=== PATIENT | female | born 1990 | race American Indian/Alaskan Native ===

== ENCOUNTER 2017-04-29 05:38 | Emergency (ER) | payer BC, OTHER ==
[2017-04-29] MEDS ORDERED: DELTASONE PO ONE (07:54)
[2017-04-29] MEDS ORDERED: TYLENOL/CODEINE PO ONE (07:54)
--- NOTE | 2017-04-29 08:10 | Emergency Department Report ---
Minor Respiratory - HPI Chief Complaint: Upper Respiratory Infection Stated Complaint: FEVER Time Seen by Provider: 04/29/17 07:19 Duration: 5 Days Pain Location: Throat, Nose Severity: moderate Minor Respiratory: Yes Sore Throat, Yes Able to Tolerate Fluids, Yes Cough, No Rhinorrhea, No Ear Pain, No Sick Contacts, No Hemoptysis, No Chest Pain, No Shortness of Breath, No Fever Other History: Patient is a 26-year-old female who presents to ED 36 weeks gestation and currently receives care from [facility]. Patient states for the past 5 days she has had intermittent coughing with yellowish greenish productive mucus. Patient also complains of runny nose soreness of the throat. Patient states she is able to tolerate fluids, food and pn vitamins regularly. Patient reports good movement and denies vaginal bleeding, leaking fluids. ED Review of Systems ROS: Stated complaint: FEVER Other details as noted in HPI Constitutional: denies: chills, fever Eyes: denies: eye pain, eye discharge, vision change ENT: congestion. denies: ear pain, throat pain, dental pain Respiratory: cough. denies: shortness of breath, wheezing Cardiovascular: denies: chest pain, palpitations Endocrine: no symptoms reported Gastrointestinal: denies: abdominal pain, nausea, diarrhea Genitourinary: denies: urgency, dysuria, discharge Musculoskeletal: denies: back pain, joint swelling, arthralgia Skin: denies: rash, lesions Neurological: denies: headache, weakness, paresthesias Psychiatric: denies: anxiety, depression Hematological/Lymphatic: denies: easy bleeding, easy bruising ED Past Medical Hx - Past Medical History Previous Medical History?: No - Surgical History Past Surgical History?: No Additional Surgical History: right ecoptic..tube removed - Social History Smoking Status: Never Smoker Substance Use Type: None - Medications Home Medications: Home Medications Medication Instructions Recorded Confirmed Last Taken Type Naproxen Sodium (Nf) [Anaprox DS] 550 mg PO BID PRN #14 tablet 06/29/13 Unknown Rx traMADol [Ultram] 50 mg PO Q4HR PRN #20 tablet 06/29/13 Unknown Rx Ascorbic Acid [Vitamin C] 500 mg PO BID #30 tablet 04/29/17 Unknown Rx D-Methorphan/PE/Acetaminophen 1 each PO Q6H #30 tablet 04/29/17 Unknown Rx [Tylenol Cold Multi-Symp Caplet] guaiFENesin [Robitussin] 200 mg PO Q6HR #20 tablet 04/29/17 Unknown Rx Minor Respiratory Exam - Exam General: Vital signs noted. No distress. Alert and acting appropriately. HEENT: Yes Moist Mucous Membranes, No Pharyngeal Erythema, No Pharyngeal Exudates, No Rhinorrhea, No Conjuctival Injection, No Frontal Tenderness, No Maxillary Tenderness Ear: Neither TM Bulge, Neither TM Erythema, Neither EAC Pain, Neither EAC Discharge Neck: Yes Supple, No Adenopathy Lungs: Yes Good Air Exchange, Yes Cough, No Wheezes, No Ronchi, No Stridor, No Labored Respirations, No Retractions, No Use of Accessory Muscles, No Other Abnormal Lung Sounds Heart: Yes Regular, No Murmur Abdomen: Yes Normal Bowel Sounds, No Tenderness, No Peritoneal Signs Skin: No Rash, No Edema Neurologic: Alert and oriented, no deficits. Musculoskeletal: Unremarkable. ED Course Vital Signs 04/29/17 05:54 Temperature 98.6 F Pulse Rate 111 H Respiratory 17 Rate Blood Pressure 116/71 O2 Sat by Pulse 98 Oximetry ED Medical Decision Making - Medical Decision Making 26-year-old female presents with upper respiratory infection. ED course: Patient received Tylenol with Codeine to help with cough and prednisone in the ED. I discussed with patient with viral syndromes last 7-14 days and will resolve on its own. I discussed with patient symptomatic relief, proper rest, vitamin C to boost immunity. I discussed the patient to avoid sick contacts, drink plenty of fluids. d I discussed the patient to follow up with [facility] as scheduled. I discussed with the patient is symptoms worsens or new symptoms arise to return to ED immediately. Vital signs are normal patient is in no acute or respiratory distress. Critical care attestation.: If time is entered above; I have spent that time in minutes in the direct care of this critically ill patient, excluding procedure time. ED Disposition Clinical Impression: Viral syndrome URI (upper respiratory infection) Qualifiers: URI type: unspecified URI Qualified Code(s): J06.9 - Acute upper respiratory infection, unspecified Disposition: DC- TO HOME OR SELFCARE Is pt being admited?: No Does the pt Need Aspirin: No Condition: Stable Instructions: Viral Syndrome (ED), Upper Respiratory Infection (ED) Additional Instructions: Make sure to follow up with the obgyn as discussed. Take all your medications as you've been prescribed. If you have any worsening symptoms or develop new symptoms please return to ED immediately. Prescriptions: Ascorbic Acid [Vitamin C] 500 mg PO BID #30 tablet D-Methorphan/PE/Acetaminophen [Tylenol Cold Multi-Symp Caplet] 1 each PO Q6H # 30 tablet guaiFENesin [Robitussin] 200 mg PO Q6HR #20 tablet Referrals: GINA EUCDEA MD [Primary Care Provider] - 3-5 Days Forms: Accompanied Note, Work/School Release Form(ED) Time of Disposition: 08:26
[2017-04-29 09:01] VITALS: BP 120/70
== END 2017-04-29 09:00 | disposition home or self-care (01) ==
LOC: ED 05:38
DX: O99.513 Diseases of the respiratory system complicating pregnancy, third trimester (principal); Z3A.36 36 weeks gestation of pregnancy; B34.9 Viral infection, unspecified
CPT/HCPCS: 99282; J7512

== ENCOUNTER 2017-06-02 01:09 | Outpatient (CLI) | payer BC, OTHER ==
[2017-06-02] MEDS ORDERED: LACTATED RINGERS 500 ML IV ONE (01:14)
[2017-06-02 01:31] VITALS: BP 112/59
[2017-06-02 03:18] LABS: Color,Urine Yellow (Yellow); Mucus,Urine 3+ /HPF
[2017-06-02 03:19] LABS: Bilirubin,Urine Negative (Negative)
[2017-06-02 03:20] LABS: Blood,Urine Negative (Negative); Nitrite,Urine Negative (Negative); Urobilinogen,Urine < 0.2 mg/dL (<2.0)
[2017-06-02 03:21] LABS: Bacteria,Urine 1+ /HPF (Negative)
== END 2017-06-02 03:35 | disposition home or self-care (01) ==
LOC: TRG 01:09
PROVIDERS: ATTEND Obstetrics & Gynecology
DX: O47.03 False labor before 37 completed weeks of gestation, third trimester (principal); Z3A.36 36 weeks gestation of pregnancy
CPT/HCPCS: 59025; 81001; 96360; J7120

== ENCOUNTER 2018-09-25 08:49 | Inpatient (IN) | payer OTHER ==
[2018-09-25] MEDS ORDERED: BRETHINE IVP PRN (10:05)
[2018-09-25] MEDS ORDERED: STADOL IV PRN (10:05)
[2018-09-25] MEDS ORDERED: ZOFRAN IV PRN ×2 (10:05→18:23)
[2018-09-25] MEDS ORDERED: XYLOCAINE 2% INFILTRATI ONE (10:05)
[2018-09-25] MEDS ORDERED: BRETHINE SUB-Q PRN (10:05)
[2018-09-25] MEDS ORDERED: PHENERGAN PO PRN ×2 (10:05→18:23)
[2018-09-25] MEDS ORDERED: MINERAL OIL PO PRN (10:05)
[2018-09-25] MEDS ORDERED: SUBLIMAZE IV PRN (10:05)
[2018-09-25] MEDS: LACTATED RINGERS 1,000 ML IV SCH ×2 (10:44→12:23)
[2018-09-25] MEDS ORDERED: PITOCin/NS 30 UNIT/500ML 30 UNITS/500 ML BAG IV SCH ×2 (11:00)
[2018-09-25] MEDS ORDERED: PITOCin/NS 20 UNIT/1000ML DRIP 20 UNITS/1,000 ML BAG IV SCH ×2 (11:00→19:00)
[2018-09-25 11:10] LABS: Basophils % (Auto) 0.2 % (0.0-1.8); Eosinophils % (Auto) 0.1 % (0.0-4.3); Lymphocytes # (Auto) 1.6 K/mm3 (1.2-5.4); Lymphocytes % (Auto) 15.9 % (13.4-35.0); Mean Corpuscular HGB Conc 30 % (30-34); Mean Corpuscular Volume 74 fl (79-97); Monocytes # (Auto) 0.5 K/mm3 (0.0-0.8); Monocytes % (Auto) 5.4 % (0.0-7.3); Platelet Count 249 K/mm3 (140-440); Red Blood Count 4.39 M/mm3 (3.65-5.03); Red Cell Distribution Width 18.1 % (13.2-15.2)
[2018-09-25 11:15] LABS: Hematocrit 32.5 % (30.3-42.9); Hemoglobin 9.8 gm/dl (10.1-14.3)
[2018-09-25] MEDS ORDERED: fentaNYL-BUPIV 2 MCG/ML-0.125% 200 MCG/100 ML BAG EPIDURAL ONE (11:43)
[2018-09-25] MEDS ORDERED: MARCAINE 0.25% INFILTRATI ONE (12:02)
--- NOTE | 2018-09-25 12:12 | History and Physical Report ---
History of Present Illness Date of examination: 09/25/18 Date of admission: 09/25/18 10:36 Chief complaint: Contractions History of present illness: Pt is a 27yo BF EDC 09/28/18; EGA 39 4/7 weeks presents to L&D complaining of RUC's q 3-4 mins. She received late care at [facility] since 24 weeks and co-managed by [facility] for Obesity and previous C Section. She desires a TOLAC. records are available and GBS is Negative. 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[employer]/uterine surgery (Right salpinectomy), section Family/Genetic History: diabetes, hypertension Social history: no significant social history, single - Obstetrical History Expected Date of Delivery: 09/28/18 Actual Gestation: 39 Week(s) 4 Day(s) : 4 Medications and Allergies Allergies Allergy/AdvReac Type Severity Reaction Status Date / Time No Known Allergies Allergy Verified 06/02/17 01:18 Home Medications Medication Instructions Recorded Confirmed Last Taken Type Ferrous Sulfate [Iron] 325 mg PO TID 06/25/17 06/25/17 1 Day Ago History ~06/24/17 Pnv,Calcium 72/Iron/Folic Acid 1 each PO DAILY 06/25/17 06/25/17 1 Day Ago History [Pnv Plus Multivit Tab] ~06/24/17 Ferrous Sulfate [Feosol 325 MG tab] 325 mg PO BID #60 tablet 06/27/17 Unknown Rx HYDROcodone/APAP 5-325 [[place] 1 each PO Q6HR PRN #30 tablet 06/27/17 Unknown Rx 5-325 mg TAB] Ibuprofen [Motrin 800 MG tab] 800 mg PO Q8HR PRN #30 tablet 06/27/17 Unknown Rx Vit-Fe Fumar-FA [ 1 each PO QDAY #30 tablet 06/27/17 Unknown Rx Vitamin] Active Meds: Active Medications Butorphanol Tartrate (Stadol) 2 mg IV Q2H PRN PRN Reason: Pain , Severe (7-10) Last Admin: 09/25/18 11:19 Dose: 2 mg Documented by: Ephedrine Sulfate (Ephedrine Sulfate) 10 mg IV Q2M PRN PRN Reason: Hypotension Fentanyl (Sublimaze) 100 mcg IV Q2H PRN PRN Reason: Labor Pain Oxytocin/Sodium Chloride (Pitocin/Ns 20 Unit/1000ml Drip) 20 units in 1,000 mls @ 125 mls/hr IV DIRECT NAKIA Oxytocin/Sodium Chloride (Pitocin/Ns 30 Unit/500ml) 30 units in 500 mls @ 1 mls/hr IV TITR NAKIA; Protocol Oxytocin/Sodium Chloride (Pitocin/Ns 30 Unit/500ml) 30 units in 500 mls @ 4 mls/hr IV TITR NAKIA; Protocol Lactated Ringer's (Lactated Ringers) 1,000 mls @ 125 mls/hr IV DIRECT NAKIA Last Admin: 09/25/18 10:44 Dose: 125 mls/hr Documented by: Mineral Oil (Mineral Oil) 30 ml PO QHS PRN PRN Reason: Constipation Ondansetron HCl (Zofran) 4 mg IV Q8H PRN PRN Reason: Nausea And Vomiting Promethazine HCl (Phenergan) 25 mg PO Q6H PRN PRN Reason: Nausea And Vomiting Terbutaline Sulfate (Brethine) 0.25 mg SUB-Q ONCE PRN PRN Reason: Hyperstimulation/Hypertonicity Terbutaline Sulfate (Brethine) 0.25 mg IVP ONCE PRN PRN Reason: Hyperstimulation/Hypertonicity Review of Systems All systems: negative - Vital Signs Vital signs: Vital Signs Pulse BP 82 149/83 09/25/18 09:12 09/25/18 09:12 Temp Pulse Resp BP Pulse Ox 98.1 F 87 16 112/82 09/25/18 10:53 09/25/18 10:54 09/25/18 09:47 09/25/18 10:54 - Physical Exam Breasts: Positive: deferred Cardiovascular: Regular rate Lungs: Positive: Clear to auscultation Abdomen: Positive: normal appearance Genitourinary (Female): Positive: normal external genitalia Vagina: Positive: normal moisture Uterus: Positive: enlarged Extremities: Positive: normal - Obstetrical FHR: category 1 Uterine Contraction Monitor Mode: External Cervical Dilatation: 4 (per nurse) Cervical Effacement Percentage: 90 (per nurse) station: -2 Uterine Contraction Pattern: Regular Uterine Tone Measurement Phase: Contraction Uterine Contraction Intensity: Moderate Results Result Diagrams: 09/25/18 10:30 Abnormal lab results 09/25/18 Range/Units 10:30 Hgb 9.8 L (10.1-14.3) gm/dl MCV 74 L (79-97) fl MCH 22 L (28-32) pg RDW 18.1 H (13.2-15.2) % Seg Neutrophils % 78.4 H (40.0-70.0) % Seg Neutrophils # 7.9 H (1.8-7.7) K/mm3 All other labs normal. Assessment and Plan - Patient Problems (1) 39 weeks gestation of Onset Date: 09/25/18 Current Visit: Yes Status: Acute Plan to address problem: A: IUP @ 39 4/7 weeks in labor Previous C Section - Desires TOLAC P: Admit to L&D for expectant vaginal delivery (). (2) Previous section Onset Date: 09/25/18 Current Visit: Yes Status: Acute
--- NOTE | 2018-09-25 15:11 | Anesthesia Consultation ---
Anesthesia Consult and Med Hx Date of service: 09/25/18 - Airway Anesthetic Teeth Evaluation: Good ROM Head & Neck: Adequate Mental/Hyoid Distance: Adequate Mallampati Class: Class II Intubation Access Assessment: Good - Pulmonary Exam CTA: Yes - Cardiac Exam Cardiac Exam: RRR - Pre-Operative Health Status ASA Pre-Surgery Classification: ASA2 Proposed Anesthetic Plan: Epidural - Pre-Anesthesia Comment Pre-Anesthesia Comments: , - Pulmonary Hx Asthma: No COPD: No Hx Pneumonia: No - Cardiovascular System Hx Hypertension: No - Central Nervous System Hx Seizures: No Hx Psychiatric Problems: No - Endocrine Hx Renal Disease: No Hx End Stage Renal Disease: No Hx Hypothyroidism: No Hx Hyperthyroidism: No - Hematic Hx Anemia: Yes Hx Sickle Cell Disease: No - Other Systems Hx Alcohol Use: No - Additional Comments Anesthesia Medical History Comments: obesity
[2018-09-25] MEDS ORDERED: NARCAN 2 MG/2 ML IV PRN (15:12)
[2018-09-25] MEDS ORDERED: fentaNYL-BUPIV 2 MCG/ML-0.125% 200 MCG/100 ML BAG EPIDURAL SCH (16:00)
--- NOTE | 2018-09-25 18:17 | Procedure Note ---
OB Delivery Note - Delivery Date of Delivery: 09/25/18 Surgeon: ARASELI CUNNINGHAM Estimated blood loss: 100cc - Vaginal Delivery presentation: vertex Delivery position: OA Intrapartum events: PROM->1hr before delivery Delivery induction: none Delivery augmentation: rupture of membranes, pitocin Delivery monitor: external FHT, external uterine Route of delivery: Delivery placenta: spontaneous Delivery cord: 3 umbilical vessels Episiotomy: none Delivery laceration: none Anesthesia: epidural Delivery comments: Infant delivered OA and placed on Mom's chest for [id number] bonding and delayed cord clamping, cut by Dad - Infant A at 1 minute: 8 at 5 minutes: 9 Gender: Male (3144gms)
[2018-09-25] MEDS ORDERED: PHENERGAN PR PRN (18:23)
[2018-09-25] MEDS ORDERED: DULCOLAX PR PRN (18:23)
[2018-09-25] MEDS ORDERED: LANSINOH TP PRN (18:23)
[2018-09-25] MEDS ORDERED: BENADRYL PO PRN (18:23)
[2018-09-25] MEDS ORDERED: MILK OF MAGNESIA PO PRN (18:23)
[2018-09-25] MEDS ORDERED: TYLENOL PO PRN (18:23)
[2018-09-25] MEDS ORDERED: TUCKS PAD TP PRN (18:23)
[2018-09-25] MEDS ORDERED: SODIUM CHLORIDE FLUSH SYRINGE 10 ML IV NR (19:00)
[2018-09-25] MEDS: COLACE PO SCH (23:07)
[2018-09-25] MEDS: FEOSOL PO SCH (23:07)
[2018-09-25] MEDS: IBUPROFEN PO SCH (23:07)
[2018-09-26] MEDS: IBUPROFEN PO SCH ×4 (05:20→22:45)
[2018-09-26] MEDS ORDERED: BOOSTRIX IM ONE (06:00)
[2018-09-26] MEDS ORDERED: M-M-R II VACCINE SUB-Q ONE (06:00)
[2018-09-26 10:24] LABS: Hematocrit 28.1 % (30.3-42.9); Hemoglobin 8.6 gm/dl (10.1-14.3)
[2018-09-26] MEDS: FEOSOL PO SCH ×2 (10:39→22:45)
[2018-09-26] MEDS: NORCO 5/325 PO PRN ×2 (10:40→16:18)
[2018-09-26] MEDS: PRENATAL VITAMIN PO SCH (10:40)
[2018-09-26] MEDS: COLACE PO SCH ×2 (10:40→22:45)
--- NOTE | 2018-09-26 15:01 | Progress Note ---
Assessment and Plan - Patient Problems (1) 39 weeks gestation of Onset Date: 09/25/18 Current Visit: Yes Status: Resolved (2) Previous section Onset Date: 09/25/18 Current Visit: Yes Status: Resolved (3) (vaginal after ) Onset Date: 09/26/18 Current Visit: Yes Status: Resolved Plan to address problem: A: S/P () - PPD #1 Doing well Asymptomatic anemia - stable P: May go home tomorrow. Subjective - Subjective Date of service: 09/26/18 Principal diagnosis: s/p - PPD #1 Interval history: Pt is feeling well without complaints. Bleeding improved. Patient reports: appetite normal, voiding normally, pain well controlled, flat us, ambulating normally, no dizzy ambulation, no nauseated [place]: doing well, nursing well Objective - Vital Signs Latest vital signs: Vital Signs Temp Pulse Resp BP Pulse Ox 09/26/18 13:36 79 109/66 98 09/26/18 12:29 97.8 F 71 18 89/47 98 09/26/18 08:33 97.8 F 74 18 91/40 98 09/26/18 00:37 98.6 F 96 H 20 111/59 97 09/25/18 19:51 97 H 106/59 09/25/18 19:36 100 H 123/58 09/25/18 19:21 105 H 116/53 09/25/18 18:35 118 H 124/55 09/25/18 18:30 98.4 F 116 H 146/64 09/25/18 18:20 112 H 95/54 09/25/18 18:15 141 H 126/86 09/25/18 18:13 110 H 124/65 09/25/18 17:44 109 H 128/67 09/25/18 17:17 127 H 114/69 09/25/18 16:08 109 H 102/62 09/25/18 16:07 97.5 F L 18 09/25/18 15:56 107 H 120/56 09/25/18 15:39 30 L 174/92 09/25/18 15:25 85 106/54 09/25/18 15:08 81 103/56 Intake and Output 09/26/18 09/26/18 09/26/18 06:59 14:59 22:59 Intake Total 240 Output Total 900 Balance -660 Intake: Oral 240 Output: Urine 900 Void 900 Other: Total, Intake Amount 240 Total, Output Amount 600 # Voids Void 1 1 - Exam Breasts: Present: deferred Abdomen: Present: normal appearance, soft Uterus: Present: normal, firm, fundal height below umbilicus Extremities: Present: normal - Labs Labs: Abnormal lab results 09/26/18 Range/Units 09:59 Hgb 8.6 L (10.1-14.3) gm/dl Hct 28.1 L (30.3-42.9) % Laboratory Tests 09/25/18 09/25/18 09/25/18 10:30 10:37 10:41 WBC 10.0 RBC 4.39 Hgb 9.8 L Hct 32.5 MCV 74 L MCH 22 L MCHC 30 RDW 18.1 H Plt Count 249 Lymph % (Auto) 15.9 [place] % (Auto) 5.4 Eos % (Auto) 0.1 Baso % (Auto) 0.2 Lymph # 1.6 [place] # 0.5 Eos # 0.0 Baso # 0.0 Seg Neutrophils % 78.4 H Seg Neutrophils # 7.9 H RPR Nonreactive Blood Type O POSITIVE Antibody Screen TNR FLETCHER Antibody Screen Negative 09/26/18 09:59 WBC RBC Hgb 8.6 L Hct 28.1 L MCV MCH MCHC RDW Plt Count Lymph % (Auto) [place] % (Auto) Eos % (Auto) Baso % (Auto) Lymph # [place] # Eos # Baso # Seg Neutrophils % Seg Neutrophils # RPR Blood Type Antibody Screen FLETCHER Antibody Screen
[2018-09-27] MEDS: IBUPROFEN PO SCH ×3 (00:32→12:10)
[2018-09-27] MEDS: FEOSOL PO SCH (09:47)
[2018-09-27] MEDS: PRENATAL VITAMIN PO SCH (09:47)
[2018-09-27] MEDS: COLACE PO SCH (09:48)
--- NOTE | 2018-09-27 10:25 | Discharge Summary ---
Providers - Providers Date of Admission: 09/25/18 10:36 Date of discharge: 09/27/18 Attending physician: ARASELI CUNNINGHAM Primary care physician: ARASELI CUNNINGHAM Hospitalization Reason for admission: active labor, IUP at term, other (Previous C Section) Delivery: Episiotomy: none Laceration: none Other procedures: none complications: none Discharge diagnosis: IUP at term delivered baby: male Hospital course: Unremarkable. Condition at discharge: Good Disposition: DC-01 TO HOME OR SELFCARE - Discharge Diagnoses (1) 39 weeks gestation of Status: Resolved (2) Previous section Status: Resolved (3) (vaginal after ) Status: Resolved Plan - Discharge Medications Prescriptions: Ferrous Sulfate [Feosol 325 MG tab] 325 mg PO BID #60 tablet Ibuprofen [Motrin 600 MG tab] 600 mg PO Q6HR #30 tablet Vit-Fe Fumar-FA [ Vitamin] 1 each PO QDAY #30 tablet - Provider Discharge Summary Activity: routine, no sex for 6 weeks, no heavy lifting 4 weeks, no strenuous exercise Diet: routine Instructions: routine Additional instructions: [] Smoking cessation referral if applicable(refer to patient education folder for contact #) [] Refer to [facility] Booklet Call your doctor immediately for: * Fever > 100.5 * Heavy vaginal bleeding ( >1 pad per hour) * Severe persistent headache * Shortness of breath * Reddened, hot, painful area to leg or breast * Drainage or odor from incision. * Keep incision clean and dry at all times and follow doctor's instructions regarding bathing/showering - Follow up plan Follow up: ARASELI CUNNINGHAM MD [Primary Care Provider] - 6 Weeks
[2018-09-27 16:30] VITALS: BP 125/77
--- NOTE | 2018-09-27 20:03 | Post Anesthesia Evaluation ---
- Post Anesthesia Evaluation Patient Participated: Yes Airway Patent: Yes Stable Respiratory Function: Yes Nausea/Vomiting: No Temp > 96.8F: Yes Pain Manageable: Yes Adequeate Hydration: Yes Anesthesia Complications: Yes Block Receding Appropriately: Yes Patient on Ventilator: No
== END 2018-09-27 18:30 | disposition home or self-care (01) | DRG 775 ==
LOC: TRG 08:49 → LD 10:36 → OB 20:55
PROVIDERS: ADMIT Obstetrics & Gynecology; ATTEND Obstetrics & Gynecology
PROC: 10E0XZZ Delivery of Products of Conception, External Approach (ICD-10-PCS; principal; 2018-09-25)
PROC: 3E0R3BZ Introduction of Anesthetic Agent into Spinal Canal, Percutaneous Approach (ICD-10-PCS; 2018-09-25)
PROC: 00HU33Z Insertion of Infusion Device into Spinal Canal, Percutaneous Approach (ICD-10-PCS; 2018-09-25)
PROC: 3E0234Z Introduction of Serum, Toxoid and Vaccine into Muscle, Percutaneous Approach (ICD-10-PCS; 2018-09-26)
DX: O42.02 Full-term premature rupture of membranes, onset of labor within 24 hours of rupture (principal); O99.214 Obesity complicating childbirth; O34.211 Maternal care for low transverse scar from previous cesarean delivery; O90.81 Anemia of the puerperium; E66.9 Obesity, unspecified; D64.9 Anemia, unspecified; Z3A.39 39 weeks gestation of pregnancy; Z37.0 Single live birth; Z23 Encounter for immunization; Z68.42 Body mass index [BMI] 45.0-49.9, adult
CPT/HCPCS: 36415; 85014; 85018; 85025; 86592; 86850; 86900; 86901; 90471; 90715; G0378; J0595; J2590; J7120